=== PATIENT | female | born 1985 | race Caucasian/White ===

== ENCOUNTER 2019-10-29 18:44 | Emergency (ER) | payer MEDICAID ==
[~2019-10-29] VITALS: Ht 157.5 cm; Wt 88.1 kg
[2019-10-29 18:48] VITALS: BP 129/64
--- NOTE | 2019-10-29 18:52 | NUR ---
P TO CHERELLE TAPIA
[2019-10-29] MEDS ORDERED: NACL 0.9% 500 ML IV ONE (19:09)
[2019-10-29] MEDS ORDERED: FAMOTIDINE 20 MG/2 ML VIAL IVP ONE (19:10)
[2019-10-29] MEDS ORDERED: ONDANSETRON 4 MG/2 ML VIAL IVP ONE (19:10)
[2019-10-29 20:02] LABS: BASOPHILS # (AUTO) 0.1 K/uL (0.00-0.22); BASOPHILS % (AUTO) 0.9 % (0.0-2.0); EOSINOPHILS # (AUTO) 0.2 K/uL (0-0.4); EOSINOPHILS % (AUTO) 2.6 % (0.0-4.0); HEMATOCRIT 41.1 % (36-48); HEMOGLOBIN 13.5 g/dL (12.0-16.0); LYMPHOCYTES # (AUTO) 2.5 K/uL (2.5-16.5); MEAN CORPUSCULAR HEMOGLOBIN 29 pg (27-31); MEAN CORPUSCULAR HGB CONC 33 g/dL (33-37); MEAN CORPUSCULAR VOLUME 88.5 fL (80-94); MONOCYTES # (AUTO) 0.6 K/uL (0.8-1.0); MONOCYTES % (AUTO) 6.4 % (1.7-9.3); NEUTROPHILS # (AUTO) 6.1 K/uL (1.8-7.7); NEUTROPHILS % (AUTO) 64.1 % (42.2-75.2); PLATELET COUNT (AUTO) 299 K/uL (140-450); RED BLOOD CELL COUNT(AUTO) 4.65 MIL/uL (4.20-5.40); RED CELL DISTRIBUTION WIDTH 13.6 % (11.6-13.7); WHITE BLOOD COUNT (AUTO) 9.5 K/uL (4.8-10.8)
--- NOTE | 2019-10-29 20:33 | NUR ---
PATIENT SITTING UP IN BED. SON AT BEDSIDE. BED LOW AND LOCKED, SIDE RAIL UP. BIB SELF. PATIENT STATES SHE IS 7 WEEKS . REPORTING EPIGASTRIC PAIN, NVD FOR 3 DAYS. STATES SHE HAS VOMITED 3X TODAY. ABD SOFT NONTENDER. PATIENT LUNGS CLEAR. PATIENT STATES NO OTHER SYMPTOMS AT THIS TIME.
[2019-10-29 20:37] LABS: ALBUMIN 3.6 g/dL (3.4-5.0); ANION GAP 10.9 (8-16); CARBON DIOXIDE 29.1 mmol/L (21-32); CREATININE 0.5 mg/dL (0.6-1.3); TOTAL BILIRUBIN 0.1 mg/dL (0.0-1.0)
[2019-10-29 21:22] LABS: APPEARANCE,URINE CLEAR (CLEAR); BILIRUBIN,URINE NEGATIVE (NEGATIVE); BLOOD, URINE NEGATIVE (NEGATIVE); COLOR,URINE YELLOW (YELLOW); LEUKOCYTE ESTERASE ,URINE NEGATIVE (NEGATIVE); NITRITE, URINE NEGATIVE (NEGATIVE); UGLUCOSE NEGATIVE (NEGATIVE)
--- NOTE | 2019-10-29 21:25 | NUR ---
ULTRA SOUND AT BEDSIDE.
[2019-10-29 22:04] VITALS: BP 115/49
== END 2019-10-29 22:04 | disposition home or self-care (01) ==
LOC: MED 18:44
DX: O99.611 Diseases of the digestive system complicating pregnancy, first trimester (principal); K29.70 Gastritis, unspecified, without bleeding; Z3A.01 Less than 8 weeks gestation of pregnancy
CPT/HCPCS: 36415; 76705; 76801; 80053; 81003; 83690; 84702; 85025; 86900; 86901; 96361; 96374; 96375; 99285; J2405; J3490; J7030; Q0092